=== PATIENT | female | born 1960 | race Two or more races ===

== ENCOUNTER 2020-04-18 10:08 | Outpatient (CLI) | payer MEDICAID ==
[~2020-04-18] VITALS: Ht 157.5 cm; Wt 44.5 kg
[2020-04-18] MEDS ORDERED: FAMOTIDINE20 MG ORAL (10:26)
[2020-04-18 10:27] VITALS: BP 98/67
--- NOTE | 2020-04-18 13:00 | Consultation ---
DATE OF CONSULTATION: 04/18/2020 GASTROENTEROLOGY CONSULTATION CONSULTING PHYSICIAN: Dex Mike MD. CHIEF COMPLAINT: GERD, abdominal pain. HISTORY OF PRESENT ILLNESS: This is a very pleasant 59-year-old [place] female, was admitted to our office with complaint of epigastric abdominal pain. Apparently, Pepcid relieved, but not completely resolved. PAST MEDICAL HISTORY: None. PAST SURGICAL HISTORY: None. MEDICATIONS: Pepcid. FAMILY HISTORY: Noncontributory. SOCIAL HISTORY: The patient denies any tobacco, alcohol, or drug abuse. ALLERGIES: No known drug allergies. Last colonoscopy and according to her was negative. PHYSICAL EXAMINATION: VITAL SIGNS: Temperature 96.9, blood pressure 98/67, pulse 78, respirations 20. HEENT: Normocephalic and atraumatic. Sclerae anicteric. NECK: Supple. No evidence of obvious lymphadenopathy. CARDIOVASCULAR: Regular rate and rhythm. Plus S1-S2. LUNGS: Clear to auscultation bilaterally. ABDOMEN: Positive bowel sounds. Soft and nontender. No rebound. No guarding. No peritoneal sign. EXTREMITIES: No cyanosis, no clubbing, no edema. ASSESSMENT AND PLAN: This is a 59-year-old female [place] complained of epigastric abdominal pain. Given her age, given her background of [place], we may recommend endoscopy to rule out gastric malignancy. The patient was informed of risks and benefits of the procedure. We will schedule as soon as authorization is obtained. Dex Mike M.D. DR: LEONARD JOB#: [id number] CC:
== END 2020-04-18 12:08 | disposition home or self-care (01) ==
LOC: PAN 10:08
DX: K21.9 Gastro-esophageal reflux disease without esophagitis (principal); R10.9 Unspecified abdominal pain
CPT/HCPCS: G0463